=== PATIENT | female | born 2000 | race Caucasian/White ===

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

== ENCOUNTER 2019-12-09 10:04 | Emergency (ER) | payer OTHER ==
[~2019-12-09] VITALS: Ht 167.6 cm; Wt 116.1 kg
[~2019-12-09 10:04] MED LIST changes: +CLINDAMYCIN HC300 MG PO; +OXYCODONE HCL5 MG PO; +XARE20MG PO; +ZOFRAN ODT4 MG SL
[2019-12-09 10:08] VITALS: BP 118/64
[2019-12-09] MEDS ORDERED: PREDNISONE20 M1 PO (12:15)
[2019-12-09] MEDS ORDERED: ZITHROMAX250 MG PO (12:15)
== END 2019-12-09 12:15 | disposition home or self-care (01) ==
LOC: ED 10:04
DX: J20.9 Acute bronchitis, unspecified (principal); J45.909 Unspecified asthma, uncomplicated; Z88.1 Allergy status to other antibiotic agents; Z79.2 Long term (current) use of antibiotics; Z79.899 Other long term (current) drug therapy

== ENCOUNTER 2020-03-31 16:15 | Emergency (ER) | payer OTHER ==
[~2020-03-31] VITALS: Ht 165.1 cm; Wt 117.9 kg
[~2020-03-31 16:15] MED LIST changes: +PREDNISONE20 M1 PO; +ZITHROMAX250 MG PO
[2020-03-31 16:18] VITALS: BP 126/51
[2020-03-31 16:44] LABS: BASO % 0.3 % (0.0-1.0); EOS # 0.1 10*3/uL (0.0-0.4); HEMATOCRIT 38.4 % (37.0-47.0); LYMPH # 2.7 10*3/uL (1.3-4.4); LYMPH % 31.6 % (27.0-41.0); MEAN CELL VOLUME 88.3 fl (81.0-99.0); MEAN CORPUSCULAR HGB 28.5 pg (27.0-31.0); MEAN CORPUSCULAR HGB CONC 32.3 g/dl (33.0-37.0); MEAN PLATELET VOLUME 9.9 fl (9.6-12.3); MONO # 0.8 10*3/uL (0.1-1.0); MONO % 9.3 % (3.0-9.0); NEUT # 4.9 10*3/uL (2.3-7.9); NEUT % 57.5 % (47.0-73.0); PLATELET COUNT AUTOMATED 232 10*3/uL (130-400); RED BLOOD COUNT 4.35 10*6/uL (4.10-5.10); RED CELL DISTRI WIDTH 12.4 % (0-14.5); WHITE BLOOD COUNT 8.6 10*3/uL (4.8-10.8)
[2020-03-31 17:08] LABS: ALBUMIN 3.4 gm/dl (3.1-4.5); ALKALINE PHOSPHATASE 42 U/L (45-117); BUN 14 mg/dl (7-24); CHLORIDE 110 mmol/L (98-107); CREATININE 0.88 mg/dL (0.55-1.02); LIPASE 55 U/L (73-393); POTASSIUM 4.1 mmol/L (3.5-5.1); SGOT/AST 10 IU/L (3-35); SGPT/ALT 23 U/L (12-78); SODIUM 138 mmol/L (136-145); TOTAL PROTEIN 7.1 gm/dL (6.4-8.2)
[2020-03-31 17:32] LABS: BILIRUBIN 1+ (NEGATIVE); BLOOD NEGATIVE (NEGATIVE); CLARITY CLOUDY (CLEAR); COLOR YELLOW (YELLOW); GLUCOSE NEGATIVE (NEGATIVE); KETONE NEGATIVE (NEGATIVE); SPECIFIC GRAVITY 1.015 (1.005-1.030)
[2020-03-31 17:33] LABS: LEUKO ESTERASE 2+ (NEGATIVE); NITRITE NEGATIVE (NEGATIVE); PH 7.5 (5.0-9.0); UROBILINOGEN 0.2 E.U./dl (0.2-1.0)
[2020-03-31 17:37] LABS: BACTERIA 3+; EPITHELIAL CELLS 31-40; WBC 16-20 wbc/hpf (0-5)
[2020-03-31] MEDS ORDERED: NAPROSYN500 MG PO (18:36)
[2020-03-31] MEDS ORDERED: MACROBID100 M1 PO (18:36)
[2020-03-31] MEDS ORDERED: TYLENOL325 M1 PO (18:36)
== END 2020-03-31 19:01 | disposition home or self-care (01) ==
LOC: ED 16:15
PROVIDERS: Emergency Medicine
DX: N39.0 Urinary tract infection, site not specified (principal); J45.909 Unspecified asthma, uncomplicated; Z79.899 Other long term (current) drug therapy; Z88.8 Allergy status to other drugs, medicaments and biological substances

== ENCOUNTER 2020-06-01 12:56 | Emergency (ER) | payer OTHER ==
[~2020-06-01 12:56] MED LIST changes: +NAPROSYN500 MG PO; +TYLENOL325 M1 PO
[2020-06-01 13:04] VITALS: BP 112/73
[2020-06-01 13:40] LABS: BASO % 0.4 % (0.0-1.0); EOS # 0.1 10*3/uL (0.0-0.4); EOS % 1.3 % (1.0-4.0); HEMATOCRIT 39.5 % (37.0-47.0); LYMPH # 2.5 10*3/uL (1.3-4.4); LYMPH % 33.3 % (27.0-41.0); MEAN CELL VOLUME 85.1 fl (81.0-99.0); MEAN CORPUSCULAR HGB 28.2 pg (27.0-31.0); MEAN CORPUSCULAR HGB CONC 33.2 g/dl (33.0-37.0); MONO # 0.6 10*3/uL (0.1-1.0); MONO % 7.9 % (3.0-9.0); NEUT # 4.3 10*3/uL (2.3-7.9); NEUT % 56.8 % (47.0-73.0); PLATELET COUNT AUTOMATED 227 10*3/uL (130-400); RED BLOOD COUNT 4.64 10*6/uL (4.10-5.10); RED CELL DISTRI WIDTH 12.3 % (0-14.5); WHITE BLOOD COUNT 7.6 10*3/uL (4.8-10.8)
[2020-06-01 13:55] LABS: ALBUMIN 3.5 gm/dl (3.1-4.5); ALKALINE PHOSPHATASE 44 U/L (45-117); BUN 13 mg/dl (7-24); CHLORIDE 109 mmol/L (98-107); CREATININE 0.91 mg/dL (0.55-1.02); POTASSIUM 3.8 mmol/L (3.5-5.1); SGOT/AST 6 IU/L (3-35); SGPT/ALT 18 U/L (12-78); SODIUM 139 mmol/L (136-145); TOTAL PROTEIN 7.3 gm/dL (6.4-8.2)
[2020-06-01 13:57] LABS: B-hCG (QUALITATIVE) NEGATIVE (NEGATIVE)
[2020-06-01 15:15] LABS: CLARITY CLOUDY (CLEAR); COLOR YELLOW (YELLOW)
[2020-06-01 15:16] LABS: BILIRUBIN NEGATIVE; BLOOD 1+ (NEGATIVE); GLUCOSE NEGATIVE; KETONE NEGATIVE; LEUKO ESTERASE 2+ (NEGATIVE); NITRITE POSITIVE (NEGATIVE); SPECIFIC GRAVITY 1.005 (1.005-1.030)
[2020-06-01 15:21] LABS: RBC 0-2 rbc/hpf (0-2); WBC TNTC wbc/hpf (0-5)
[2020-06-01 15:22] LABS: BACTERIA 4+
[2020-06-01] MEDS ORDERED: POLYSPORIN OINT15 GM T (16:22)
[2020-06-01] MEDS ORDERED: MACROBID100 M1 PO (16:29)
== END 2020-06-01 16:25 | disposition home or self-care (01) ==
LOC: ED 12:56
PROVIDERS: Emergency Medicine
DX: N39.0 Urinary tract infection, site not specified (principal); K43.9 Ventral hernia without obstruction or gangrene; L98.499 Non-pressure chronic ulcer of skin of other sites with unspecified severity; Z88.1 Allergy status to other antibiotic agents; Z79.899 Other long term (current) drug therapy

== ENCOUNTER 2020-12-12 12:16 | Emergency (ER) | payer OTHER ==
[~2020-12-12] VITALS: Wt 117.9 kg
[~2020-12-12 12:16] MED LIST changes: +POLYSPORIN OINT15 GM T
[2020-12-12 12:24] VITALS: BP 125/80
[2020-12-12] MEDS ORDERED: ELIMITE 5%60 GM T (12:47)
[2020-12-12] MEDS ORDERED: DOXYCYCLINE100 M3 PO (12:47)
== END 2020-12-12 13:05 | disposition home or self-care (01) ==
LOC: ED 12:16
DX: S20.369A Insect bite (nonvenomous) of unspecified front wall of thorax, initial encounter (principal); N60.01 Solitary cyst of right breast; J45.909 Unspecified asthma, uncomplicated; Z88.8 Allergy status to other drugs, medicaments and biological substances; Z79.899 Other long term (current) drug therapy; Z98.890 Other specified postprocedural states; W57.XXXA Bitten or stung by nonvenomous insect and other nonvenomous arthropods, initial encounter; Y93.89 Activity, other specified; Y92.89 Other specified places as the place of occurrence of the external cause; Y99.8 Other external cause status

== ENCOUNTER 2021-07-29 11:58 | Emergency (ER) | payer OTHER ==
[~2021-07-29] VITALS: Ht 167.6 cm; Wt 127.0 kg
[~2021-07-29 11:58] MED LIST changes: +DOXYCYCLINE100 M3 PO; +ELIMITE 5%60 GM T
[2021-07-29 12:14] VITALS: BP 134/83
== END 2021-07-29 18:18 | disposition left against medical advice (07) ==
LOC: ED 11:58
DX: R50.9 Fever, unspecified (principal); R05.9 Cough, unspecified; J02.9 Acute pharyngitis, unspecified; Z53.21 Procedure and treatment not carried out due to patient leaving prior to being seen by health care provider

== ENCOUNTER 2021-10-01 14:27 | Emergency (ER) | payer OTHER ==
[~2021-10-01] VITALS: Wt 118.8 kg
[2021-10-01 14:32] VITALS: BP 146/77
[2021-10-01 15:13] LABS: BASO % 0.3 % (0.0-1.0); EOS # 0.3 10*3/uL (0.0-0.4); EOS % 4.4 % (1.0-4.0); HEMATOCRIT 40.2 % (37.0-47.0); LYMPH # 1.5 10*3/uL (1.3-4.4); LYMPH % 26.2 % (27.0-41.0); MEAN CELL VOLUME 86.1 fl (81.0-99.0); MEAN CORPUSCULAR HGB 27.8 pg (27.0-31.0); MEAN CORPUSCULAR HGB CONC 32.3 g/dl (33.0-37.0); MEAN PLATELET VOLUME 9.2 fl (9.6-12.3); MONO # 0.7 10*3/uL (0.1-1.0); MONO % 12.6 % (3.0-9.0); NEUT # 3.3 10*3/uL (2.3-7.9); PLATELET COUNT AUTOMATED 230 10*3/uL (130-400); RED BLOOD COUNT 4.67 10*6/uL (4.10-5.10); WHITE BLOOD COUNT 5.9 10*3/uL (4.8-10.8)
[2021-10-01 15:28] LABS: ALBUMIN 3.4 gm/dl (3.1-4.5); ALKALINE PHOSPHATASE 50 U/L (45-117); BUN 9 mg/dl (7-24); CHLORIDE 107 mmol/L (98-107); CREATININE 0.93 mg/dL (0.55-1.02); POTASSIUM 4.1 mmol/L (3.5-5.1); SGOT/AST 13 IU/L (3-35); SGPT/ALT 24 U/L (12-78); SODIUM 140 mmol/L (136-145); TOTAL PROTEIN 7.3 gm/dL (6.4-8.2)
[2021-10-01 16:13] LABS: BILIRUBIN Negative (Negative); BLOOD Negative (Negative); CLARITY Turbid (Clear); COLOR Yellow (Yellow); GLUCOSE Negative (Negative); KETONE Negative (Negative); LEUKO ESTERASE 2+ (Negative); NITRITE Negative (Negative); SPECIFIC GRAVITY 1.015 (1.001-1.030)
[2021-10-01 16:22] LABS: BACTERIA 2+; EPITHELIAL CELLS TNTC; MUCOUS TRACE; RBC 0-2 rbc/hpf (0-2)
[2021-10-01] MEDS ORDERED: SEPTDS PO (18:45)
== END 2021-10-01 18:52 | disposition home or self-care (01) ==
LOC: ED 14:27
PROVIDERS: Nurse Practitioner
DX: N39.0 Urinary tract infection, site not specified (principal); Z20.822 Contact with and (suspected) exposure to COVID-19; B34.9 Viral infection, unspecified

== ENCOUNTER 2022-07-08 22:57 | Emergency (ER) | payer OTHER ==
[~2022-07-08] VITALS: Ht 165.1 cm; Wt 113.4 kg
[~2022-07-08 22:57] MED LIST changes: +SEPTDS PO
[2022-07-08 23:03] VITALS: BP 122/67
[2022-07-08 23:29] LABS: BASO % 0.3 % (0.0-1.0); EOS # 0.1 10*3/uL (0.0-0.4); EOS % 1.8 % (1.0-4.0); HEMATOCRIT 39.9 % (37.0-47.0); LYMPH # 2.3 10*3/uL (1.3-4.4); LYMPH % 37.7 % (27.0-41.0); MEAN CELL VOLUME 86.6 fl (81.0-99.0); MEAN CORPUSCULAR HGB 28.9 pg (27.0-31.0); MEAN CORPUSCULAR HGB CONC 33.3 g/dl (33.0-37.0); MEAN PLATELET VOLUME 9.4 fl (9.6-12.3); MONO # 0.6 10*3/uL (0.1-1.0); MONO % 9.1 % (3.0-9.0); NEUT # 3.1 10*3/uL (2.3-7.9); NEUT % 50.6 % (47.0-73.0); PLATELET COUNT AUTOMATED 230 10*3/uL (130-400); RED BLOOD COUNT 4.61 10*6/uL (4.10-5.10); RED CELL DISTRI WIDTH 12.1 % (0-14.5); WHITE BLOOD COUNT 6.2 10*3/uL (4.8-10.8)
[2022-07-08 23:45] LABS: ALKALINE PHOSPHATASE 48 U/L (45-117); BUN 12 mg/dl (7-24); CHLORIDE 109 mmol/L (98-107); LIPASE 66 U/L (73-393); POTASSIUM 3.6 mmol/L (3.5-5.1); SGOT/AST 9 IU/L (3-35); SGPT/ALT 25 U/L (12-78); SODIUM 140 mmol/L (136-145)
[2022-07-08 23:52] LABS: BILIRUBIN Negative (Negative); BLOOD Negative (Negative); CLARITY Cloudy (Clear); COLOR Yellow (Yellow); GLUCOSE Negative (Negative); KETONE Trace (Negative); LEUKO ESTERASE 1+ (Negative); NITRITE Negative (Negative); PH 6.5 (4.5-8.0); SPECIFIC GRAVITY 1.025 (1.001-1.030)
[2022-07-09 00:02] LABS: EPITHELIAL CELLS TNTC
== END 2022-07-09 00:38 | disposition home or self-care (01) ==
LOC: ED 22:57
PROVIDERS: Internal Medicine
DX: R10.84 Generalized abdominal pain (principal); Z79.899 Other long term (current) drug therapy; Z98.890 Other specified postprocedural states; Z88.1 Allergy status to other antibiotic agents; Z88.0 Allergy status to penicillin

== ENCOUNTER 2022-10-03 03:28 | Emergency (ER) | payer OTHER ==
[~2022-10-03] VITALS: Ht 172.7 cm; Wt 142.4 kg
[2022-10-03 03:30] VITALS: BP 110/74
[2022-10-03] MEDS ORDERED: SEPTDS PO (04:09)
== END 2022-10-03 04:10 | disposition home or self-care (01) ==
LOC: ED 03:28
DX: N73.9 Female pelvic inflammatory disease, unspecified (principal); Z88.8 Allergy status to other drugs, medicaments and biological substances; Z98.890 Other specified postprocedural states

== ENCOUNTER 2022-10-07 00:29 | Emergency (ER) | payer OTHER ==
[~2022-10-07] VITALS: Ht 165.1 cm; Wt 136.1 kg
[2022-10-07 00:46] VITALS: BP 138/56
== END 2022-10-07 02:10 | disposition home or self-care (01) ==
LOC: ED 00:29
DX: B34.9 Viral infection, unspecified (principal); Z88.5 Allergy status to narcotic agent; Z88.2 Allergy status to sulfonamides; Z98.890 Other specified postprocedural states; Z20.822 Contact with and (suspected) exposure to COVID-19

== ENCOUNTER 2022-11-24 17:58 | Emergency (ER) | payer OTHER ==
[~2022-11-24] VITALS: Ht 165.1 cm; Wt 117.9 kg
[2022-11-24 18:12] VITALS: BP 142/98
== END 2022-11-24 20:52 | disposition home or self-care (01) ==
LOC: ED 17:58
DX: M25.562 Pain in left knee (principal); J45.909 Unspecified asthma, uncomplicated; Z88.1 Allergy status to other antibiotic agents; Z88.8 Allergy status to other drugs, medicaments and biological substances; Z98.890 Other specified postprocedural states

== ENCOUNTER → 2023-01-09 | Outpatient (CLI) | payer OTHER ==
[2023-01-09 17:00] LABS: BASO % 0.3 % (0.0-1.0); EOS # 0.1 10*3/uL (0.0-0.4); EOS % 1.8 % (1.0-4.0); HEMATOCRIT 38.9 % (37.0-47.0); LYMPH # 2.3 10*3/uL (1.3-4.4); LYMPH % 32.2 % (27.0-41.0); MEAN CELL VOLUME 86.3 fl (81.0-99.0); MEAN CORPUSCULAR HGB 28.8 pg (27.0-31.0); MEAN CORPUSCULAR HGB CONC 33.4 g/dl (33.0-37.0); MEAN PLATELET VOLUME 9.3 fl (9.6-12.3); MONO # 0.6 10*3/uL (0.1-1.0); MONO % 7.7 % (3.0-9.0); NEUT # 4.1 10*3/uL (2.3-7.9); NEUT % 57.6 % (47.0-73.0); PLATELET COUNT AUTOMATED 258 10*3/uL (130-400); RED BLOOD COUNT 4.51 10*6/uL (4.10-5.10); RED CELL DISTRI WIDTH 11.9 % (0-14.5); WHITE BLOOD COUNT 7.1 10*3/uL (4.8-10.8)
[2023-01-09 17:19] LABS: ALKALINE PHOSPHATASE 45 U/L (46-116); BUN 10 mg/dl (9-23); CHLORIDE 106 mmol/L (98-107); FREE T4 1.19 ng/dl (0.89-1.76); POTASSIUM 4.2 mmol/L (3.4-5.1); SGPT/ALT 19 U/L (10-49)
== END | disposition home or self-care (01) ==
LOC: LAB 16:29
PROVIDERS: ATTEND Internal Medicine Nephrology
DX: E66.01 Morbid (severe) obesity due to excess calories (principal); M54.50 Low back pain, unspecified

== ENCOUNTER 2023-03-27 17:58 | Emergency (ER) | payer OTHER ==
[~2023-03-27] VITALS: Ht 160 cm; Wt 136.1 kg
[2023-03-27] MEDS ORDERED: AMOXICILLIN500 M2 PO (18:53)
[2023-03-27] MEDS ORDERED: CEFDINIR300 MG PO (18:57)
[2023-03-27] MEDS ORDERED: NYSTOP60 GM T (18:57)
[2023-03-27 19:30] VITALS: BP 118/61
== END 2023-03-27 19:32 | disposition home or self-care (01) ==
LOC: ED 17:58
DX: J02.0 Streptococcal pharyngitis (principal); B37.2 Candidiasis of skin and nail; J45.909 Unspecified asthma, uncomplicated; Z88.1 Allergy status to other antibiotic agents; Z79.2 Long term (current) use of antibiotics; Z79.899 Other long term (current) drug therapy; Z98.890 Other specified postprocedural states

== ENCOUNTER 2023-04-26 19:30 | Emergency (ER) | payer OTHER ==
[~2023-04-26] VITALS: Ht 160 cm; Wt 131.1 kg
[~2023-04-26 19:30] MED LIST changes: +AMOXICILLIN500 M2 PO; +CEFDINIR300 MG PO; +NYSTOP60 GM T
[2023-04-26 19:39] VITALS: BP 126/78
[2023-04-26 20:38] LABS: BASO % 0.3 % (0.0-1.0); EOS # 0.2 10*3/uL (0.0-0.4); EOS % 2.8 % (1.0-4.0); HEMATOCRIT 38.4 % (37.0-47.0); LYMPH # 2.5 10*3/uL (1.3-4.4); LYMPH % 31.5 % (27.0-41.0); MEAN CELL VOLUME 88.3 fl (81.0-99.0); MEAN CORPUSCULAR HGB 28.7 pg (27.0-31.0); MEAN CORPUSCULAR HGB CONC 32.6 g/dl (33.0-37.0); MEAN PLATELET VOLUME 9.5 fl (9.6-12.3); MONO # 0.8 10*3/uL (0.1-1.0); MONO % 10.8 % (3.0-9.0); NEUT # 4.2 10*3/uL (2.3-7.9); NEUT % 54.1 % (47.0-73.0); PLATELET COUNT AUTOMATED 253 10*3/uL (130-400); RED BLOOD COUNT 4.35 10*6/uL (4.10-5.10); RED CELL DISTRI WIDTH 12.5 % (0-14.5); WHITE BLOOD COUNT 7.8 10*3/uL (4.8-10.8)
[2023-04-26 21:04] LABS: ALKALINE PHOSPHATASE 43 U/L (46-116); BUN 10 mg/dl (9-23); CHLORIDE 104 mmol/L (98-107); POTASSIUM 3.8 mmol/L (3.4-5.1); SGPT/ALT 21 U/L (10-49); TOTAL PROTEIN 7.4 gm/dL (6.0-8.0)
== END 2023-04-27 02:56 | disposition left against medical advice (07) ==
LOC: ED 19:30
PROVIDERS: Emergency Medicine
DX: J45.909 Unspecified asthma, uncomplicated (principal); R11.10 Vomiting, unspecified; Z88.8 Allergy status to other drugs, medicaments and biological substances; Z98.890 Other specified postprocedural states

== ENCOUNTER → 2023-08-31 | Outpatient (CLI) | payer OTHER | END | disposition home or self-care (01) | LOC: US 08-27 00:58 | PROVIDERS: ATTEND Internal Medicine Nephrology | DX: K76.0 Fatty (change of) liver, not elsewhere classified (principal) ==

== ENCOUNTER 2024-01-24 05:05 | Emergency (ER) | payer OTHER ==
[~2024-01-24] VITALS: Ht 165.1 cm; Wt 136.1 kg
[2024-01-24 05:19] VITALS: BP 125/61
[2024-01-24] MEDS ORDERED: Dexamethasone Sodium Phospha 20 MG/5 ML VIAL IM ONE (05:25)
[2024-01-24] MEDS ORDERED: Ketorolac Tromethamine 60 MG/2 ML VIAL IM ONE (05:30)
[2024-01-24] MEDS ORDERED: CYCLOBENZAPRINE5 M3 PO (06:43)
[2024-01-24] MEDS ORDERED: MELOXICAM15 MG PO (06:43)
== END 2024-01-24 06:47 | disposition home or self-care (01) ==
LOC: ED 05:05
DX: M62.830 Muscle spasm of back (principal); J45.909 Unspecified asthma, uncomplicated; Z88.8 Allergy status to other drugs, medicaments and biological substances; Z98.890 Other specified postprocedural states; Z87.891 Personal history of nicotine dependence

== ENCOUNTER 2024-03-13 16:12 | Emergency (ER) | payer OTHER ==
[~2024-03-13] VITALS: Ht 162.5 cm; Wt 127.0 kg
[~2024-03-13 16:12] MED LIST changes: +CYCLOBENZAPRINE5 M3 PO; +MELOXICAM15 MG PO
[2024-03-13 16:18] VITALS: BP 128/78
[2024-03-13] MEDS ORDERED: CYMBALTA60 MG PO (16:20)
[2024-03-13] MEDS ORDERED: CETIRIZINE10 MG PO (16:32)
[2024-03-13] MEDS ORDERED: AMOX-CLAV 875-1 EACH PO (16:32)
== END 2024-03-13 16:39 | disposition home or self-care (01) ==
LOC: ED 16:12
DX: H66.92 Otitis media, unspecified, left ear (principal); J45.909 Unspecified asthma, uncomplicated; Z88.8 Allergy status to other drugs, medicaments and biological substances; Z98.890 Other specified postprocedural states; Z87.891 Personal history of nicotine dependence

== ENCOUNTER 2024-04-02 23:17 | Emergency (ER) | payer OTHER ==
[~2024-04-02] VITALS: Ht 162.5 cm; Wt 127.0 kg
[~2024-04-02 23:17] MED LIST changes: +AMOX-CLAV 875-1 EACH PO; +CETIRIZINE10 MG PO; +CYMBALTA60 MG PO
[2024-04-02 23:57] VITALS: BP 132/68
== END 2024-04-03 03:35 | disposition left against medical advice (07) ==
LOC: ED 23:17
DX: K46.9 Unspecified abdominal hernia without obstruction or gangrene (principal); Z88.8 Allergy status to other drugs, medicaments and biological substances; Z53.21 Procedure and treatment not carried out due to patient leaving prior to being seen by health care provider

== ENCOUNTER 2024-04-08 07:46 | Emergency (ER) | payer OTHER ==
[~2024-04-08] VITALS: Ht 162.5 cm; Wt 127.0 kg
[2024-04-08 07:54] VITALS: BP 124/78
[2024-04-08] MEDS ORDERED: Acetaminophen/Oxycodone 5 MG/325 MG TABLET PO ONE (08:00)
[2024-04-08] MEDS ORDERED: MELOXICAM15 MG PO (08:20)
== END 2024-04-08 08:32 | disposition home or self-care (01) ==
LOC: ED 07:46
DX: S93.401A Sprain of unspecified ligament of right ankle, initial encounter (principal); J45.909 Unspecified asthma, uncomplicated; Z88.0 Allergy status to penicillin; Z88.8 Allergy status to other drugs, medicaments and biological substances; Z98.890 Other specified postprocedural states; X58.XXXA Exposure to other specified factors, initial encounter; Y93.89 Activity, other specified; Y92.89 Other specified places as the place of occurrence of the external cause; Y99.8 Other external cause status

== ENCOUNTER 2024-05-01 00:19 | Emergency (ER) | payer OTHER ==
[~2024-05-01] VITALS: Ht 162.5 cm; Wt 127.0 kg
[2024-05-01 01:50] LABS: BILIRUBIN Negative (Negative); BLOOD Negative (Negative); CLARITY Turbid (Clear); COLOR Yellow (Yellow); GLUCOSE Negative (Negative); KETONE Negative (Negative); LEUKO ESTERASE 1+ (Negative); NITRITE Negative (Negative); PH 6.5 (4.5-8.0)
[2024-05-01] MEDS ORDERED: Ondansetron Hydrochloride 4 MG TAB SL ONE (02:00)
[2024-05-01] MEDS ORDERED: IBUPROFEN 600 MG TAB PO ONE (02:00)
[2024-05-01 02:24] LABS: BACTERIA 1+; EPITHELIAL CELLS 41-50
[2024-05-01] MEDS ORDERED: Ketorolac Tromethamine 15 MG/ML VIAL IM ONE (05:05)
[2024-05-01] MEDS ORDERED: Gentamicin Sulfate 80 MG/2 ML VIAL IM ONE (05:10)
[2024-05-01] MEDS ORDERED: AZITHROMYCIN 250 MG TAB PO ONE (05:10)
[2024-05-01] MEDS ORDERED: NAPROSYN500 MG PO (05:14)
[2024-05-01 05:46] VITALS: BP 118/60
[2024-05-01] MEDS ORDERED: Gentamicin Sulfate 80 MG/2 ML VIAL IV ONE (09:24)
== END 2024-05-01 05:45 | disposition home or self-care (01) ==
LOC: ED 00:19
PROVIDERS: Internal Medicine
DX: R10.31 Right lower quadrant pain (principal); R11.0 Nausea; J45.909 Unspecified asthma, uncomplicated; Z88.8 Allergy status to other drugs, medicaments and biological substances; Z98.890 Other specified postprocedural states; Z87.891 Personal history of nicotine dependence

== ENCOUNTER 2024-09-03 10:39 | Emergency (ER) | payer OTHER ==
[~2024-09-03] VITALS: Ht 162.5 cm; Wt 127.0 kg
[2024-09-03 11:10] VITALS: BP 127/85
[2024-09-03] MEDS ORDERED: Ondansetron Hydrochloride 4 MG TAB SL ONE (11:45)
[2024-09-03] MEDS ORDERED: Ciprofloxacin Hydrochloride 500 MG TAB PO ONE (12:05)
[2024-09-03 12:36] LABS: BILIRUBIN Negative (Negative); BLOOD Negative (Negative); CLARITY Cloudy (Clear); COLOR Yellow (Yellow); GLUCOSE Negative (Negative); KETONE Negative (Negative); LEUKO ESTERASE 1+ (Negative); NITRITE Positive (Negative); PH 6.5 (4.5-8.0); SPECIFIC GRAVITY 1.025 (1.001-1.030)
[2024-09-03 12:47] LABS: EPITHELIAL CELLS 21-30
[2024-09-03 12:48] LABS: BACTERIA 2+; RBC 0-2 rbc/hpf (0-2)
[2024-09-03] MEDS ORDERED: CIPRO500 MG PO (12:52)
== END 2024-09-03 13:04 | disposition home or self-care (01) ==
LOC: ED 10:39
PROVIDERS: Nurse Practitioner
DX: N75.0 Cyst of Bartholin's gland (principal); N39.0 Urinary tract infection, site not specified; J45.909 Unspecified asthma, uncomplicated; Z88.1 Allergy status to other antibiotic agents; Z98.890 Other specified postprocedural states; Z97.5 Presence of (intrauterine) contraceptive device

== ENCOUNTER 2025-04-16 16:03 | Emergency (ER) | payer OTHER ==
[~2025-04-16] VITALS: Ht 162.5 cm; Wt 136.1 kg
[~2025-04-16 16:03] MED LIST changes: +CIPRO500 MG PO
[2025-04-16 16:13] VITALS: BP 141/90
[2025-04-16] MEDS ORDERED: IBUPROFEN 800 MG TAB PO ONE (16:35)
[2025-04-16] MEDS ORDERED: Acetaminophen/Hydrocodone 5 MG/325 MG TABLET PO ONE (17:25)
== END 2025-04-16 18:37 | disposition home or self-care (01) ==
LOC: ED 16:03
DX: S93.402A Sprain of unspecified ligament of left ankle, initial encounter (principal); K11.8 Other diseases of salivary glands; J45.909 Unspecified asthma, uncomplicated; Z88.1 Allergy status to other antibiotic agents; Z98.890 Other specified postprocedural states; X50.1XXA Overexertion from prolonged static or awkward postures, initial encounter; Y93.89 Activity, other specified; Y92.89 Other specified places as the place of occurrence of the external cause; Y99.8 Other external cause status

== ENCOUNTER 2025-06-05 21:05 | Emergency (ER) | payer OTHER ==
[~2025-06-05] VITALS: Ht 165.1 cm; Wt 145.1 kg
[2025-06-05 21:17] VITALS: BP 133/80
[2025-06-05 23:03] LABS: BASO # 0.0 10*3/uL (0.0-0.1); BASO % 0.2 % (0.0-1.0); EOS # 0.1 10*3/uL (0.0-0.4); EOS % 1.1 % (1.0-4.0); MEAN CELL VOLUME 87.7 fl (81.0-99.0); MEAN CORPUSCULAR HGB 28.4 pg (27.0-31.0); MEAN PLATELET VOLUME 9.0 fl (9.6-12.3); MONO # 0.7 10*3/uL (0.1-1.0); MONO % 7.6 % (3.0-9.0); NEUT # 5.4 10*3/uL (2.3-7.9); NEUT % 59.7 % (47.0-73.0); NUCLEATED RED BLOOD CELL 0.0 % (0.0-0.0); NUCLEATED RED BLOOD CELL 0.0 10*3/uL (0.0-0.0); PLATELET COUNT AUTOMATED 273 10*3/uL (130-400); RED CELL DISTRI WIDTH 12.4 % (0-14.5)
[2025-06-05 23:28] LABS: BUN 9 mg/dl (9-23)
[2025-06-06] MEDS ORDERED: CLINDAMYCIN HCL 300 MG CAPSULE PO ONE (00:05)
[2025-06-06] MEDS ORDERED: CLINDAMYCIN HC300 MG PO (00:07)
[2025-06-06] MEDS ORDERED: IBU800 M1 PO (00:16)
== END 2025-06-06 00:24 | disposition home or self-care (01) ==
LOC: ED 21:05
PROVIDERS: Internal Medicine
DX: K08.409 Partial loss of teeth, unspecified cause, unspecified class (principal); J02.9 Acute pharyngitis, unspecified; J45.909 Unspecified asthma, uncomplicated; Z88.8 Allergy status to other drugs, medicaments and biological substances; Z98.890 Other specified postprocedural states; Z90.49 Acquired absence of other specified parts of digestive tract

== ENCOUNTER 2025-07-05 22:14 | Emergency (ER) | payer OTHER ==
[~2025-07-05] VITALS: Ht 162.5 cm; Wt 139.7 kg
[~2025-07-05 22:14] MED LIST changes: +IBU800 M1 PO
[2025-07-05 22:46] VITALS: BP 127/82
[2025-07-05 23:20] LABS: BASO # 0.0 10*3/uL (0.0-0.1); BASO % 0.2 % (0.0-1.0); EOS # 0.1 10*3/uL (0.0-0.4); EOS % 1.0 % (1.0-4.0); MEAN CELL VOLUME 85.0 fl (81.0-99.0); MEAN CORPUSCULAR HGB 28.5 pg (27.0-31.0); MEAN PLATELET VOLUME 9.2 fl (9.6-12.3); MONO # 0.8 10*3/uL (0.1-1.0); MONO % 7.4 % (3.0-9.0); NEUT # 7.6 10*3/uL (2.3-7.9); NEUT % 69.9 % (47.0-73.0); NUCLEATED RED BLOOD CELL 0.0 % (0.0-0.0); NUCLEATED RED BLOOD CELL 0.0 10*3/uL (0.0-0.0); PLATELET COUNT AUTOMATED 266 10*3/uL (130-400); RED CELL DISTRI WIDTH 11.9 % (0-14.5)
[2025-07-06] MEDS ORDERED: MEDROL DOSEPAK4 MG PO (23:07)
== END 2025-07-06 00:38 | disposition home or self-care (01) ==
LOC: ED 22:14
PROVIDERS: Internal Medicine
DX: B34.9 Viral infection, unspecified (principal); Z20.822 Contact with and (suspected) exposure to COVID-19; J45.909 Unspecified asthma, uncomplicated; Z88.1 Allergy status to other antibiotic agents; Z98.890 Other specified postprocedural states

== ENCOUNTER 2025-07-06 22:33 | Emergency (ER) | payer OTHER ==
[~2025-07-06] VITALS: Ht 162.5 cm; Wt 136.1 kg
[2025-07-06 22:39] VITALS: BP 129/78
[2025-07-06] MEDS ORDERED: MEDROL DOSEPAK4 MG PO (23:07)
== END 2025-07-06 23:24 | disposition home or self-care (01) ==
LOC: ED 22:33
DX: J06.9 Acute upper respiratory infection, unspecified (principal); J45.909 Unspecified asthma, uncomplicated; Z20.822 Contact with and (suspected) exposure to COVID-19; Z88.1 Allergy status to other antibiotic agents; Z98.890 Other specified postprocedural states